=== PATIENT | female | born 1935 ===

== ENCOUNTER 2018-07-30 12:37 | Emergency (ER) | payer MEDICARE ==
[2018-07-30 12:54] VITALS: BP 211/75; PULSE 71; TEMP 97; O2SAT 100
--- NOTE | 2018-07-30 13:25 | C.PDOC ---
History Of Present Illness 83-year-old female with a PMHx of arthritis, hypertension, and diabetes, presents to the ED complaining of pain to the entire right leg, ongoing for the last 8 months, but worsening for the past 2-3 weeks. Patient occasionally notices swelling to the right lower extremity as well. She denies any numbness, tingling, or focal weakness. Son at bedside states the pain is worst during the mornings, and the patient often requires assistance to get out of bed. Patient is then able to ambulate independently throughout the rest of the day. She has been seen by her PMD as well as here in the ED for same complaint, and had an x- ray and Doppler study which were negative. Patient reports persistent pain, which is not relieved by taking Tylenol. Time Seen by Provider: 07/30/18 13:07 Chief Complaint (Nursing): Lower Extremity Problem/Injury History Per: Patient History/Exam Limitations: no limitations Onset/Duration Of Symptoms: Days Current Symptoms Are (Timing): Still Present Additional History Per: Family (son) Past Medical History Reviewed: Historical Data, Nursing Documentation, Vital Signs Vital Signs: Last Vital Signs Temp 97 F L 07/30/18 12:51 Pulse 71 07/30/18 12:51 Resp BP 211/75 H 07/30/18 12:51 Pulse Ox 100 07/30/18 12:51 - Medical History PMH: Arthritis, Diabetes, HTN, Hypercholesterolemia, Hypothyroidism, Malignancy (basal cell carcinoma), Osteoporosis Family History: States: Unknown Family Hx - Social History Hx Tobacco Use: No Hx Alcohol Use: No Hx Substance Use: No - Immunization History Hx Tetanus Toxoid Vaccination: No Hx Influenza Vaccination: Yes Hx Pneumococcal Vaccination: Yes Review Of Systems Constitutional: Negative for: Fever Musculoskeletal: Positive for: Leg Pain (right leg from the anterior thigh down to the foot) Skin: Negative for: Rash, Lesions Neurological: Negative for: Weakness, Numbness, Incoordination Physical Exam - Physical Exam Appears: Well, Non-toxic, No Acute Distress Skin: Warm, Dry, No Rash Head: Atraumatic, Normacephalic Eye(s): bilateral: Normal Inspection Extremity: Normal ROM, Tenderness (Mild tenderness to the right anterior thigh, hip non-tender), Pedal Edema (trace), No Calf Tenderness, Capillary Refill (less than 2 sec), No Deformity Pulses: Left Dorsalis Pedis: Normal, Right Dorsalis Pedis: Normal Neurological/Psych: Oriented x3, Normal Speech ED Course And Treatment O2 Sat by Pulse Oximetry: 100 (RA) Pulse Ox Interpretation: Normal Medical Decision Making Medical Decision Making: Impression: Right leg pain, history of arthritis Initial Plan: --Motrin 400 mg PO Patient counseled regarding the importance of follow up with rheumatology and/or orthopedics. Disposition Counseled Patient/Family Regarding: Diagnosis, Need For Followup, Rx Given - Disposition Referrals: Cristino Harmon MD [Staff Provider] - Lionel Hinojosa MD [Staff Provider] - Tutu Rabago MD [Staff Provider] - Disposition: HOME/ ROUTINE Disposition Time: 13:47 Condition: STABLE Additional Instructions: Take pain medicine as needed Follow up with rhuematologist or orthopedic for further care Ask your doctor if they recommend physical therapy Prescriptions: Acetaminophen [Acetaminophen Extra Strength] 500 mg PO Q12 PRN #30 tablet PRN Reason: Pain, Moderate (4-7) Ibuprofen [Motrin] 1 tab PO TID PRN #30 tab PRN Reason: Pain Instructions: Joint Pain Forms: [employer] ([place]) - POA Present On Arrival: None - Clinical Impression Clinical Impression: Arthralgia - PA / PNEUMATIC HOIST OPERATOR / Resident Statement MD/DO has reviewed & agrees with the documentation as recorded. - Scribe Statement The provider has reviewed the documentation as recorded by the Scribe Alisa Jim All medical record entries made by the Scribe were at my direction and personally dictated by me. I have reviewed the chart and agree that the record accurately reflects my personal performance of the history, physical exam, medical decision making, and the department course for this patient. I have also personally directed, reviewed, and agree with the discharge instructions and disposition.
== END 2018-07-30 13:57 | disposition home or self-care (01) ==
LOC: C.ER 12:37
DX: M25.50 Pain in unspecified joint (principal); M19.90 Unspecified osteoarthritis, unspecified site

== ENCOUNTER 2018-10-09 09:16 | Outpatient (CLI) | payer MEDICARE | END 2018-10-09 09:17 | disposition home or self-care (01) | LOC: C.MRIC 09:16 | DX: M48.062 Spinal stenosis, lumbar region with neurogenic claudication (principal); M16.11 Unilateral primary osteoarthritis, right hip ==